=== PATIENT | male | born 1985 | race African-American/Black ===

== ENCOUNTER 2024-06-25 08:40 | Inpatient (IN) | payer OTHER ==
[2024-06-25] MEDS: ceFAZolin SODIUM 1 GM VIAL IVPB ONE
[2024-06-25] MEDS ORDERED: ACETAMINOPHEN INJECTION 100 ML ONE (10:10)
[2024-06-25] MEDS ORDERED: ONDANSETRON 4 MG/2 ML VIAL ONE ×2 (10:10→13:25)
[2024-06-25] MEDS: SODIUM CHLORIDE 0.9% 500 ML INFUS.BAG IV ONE ×2 (10:22→12:38)
[2024-06-25] MEDS: ONDANSETRON 4 MG/2 ML VIAL IVPUSH ONE (10:22)
[2024-06-25] MEDS: ACETAMINOPHEN 1000 MG/100 ML BAG IVPB ONE (10:22)
[2024-06-25 10:36] LABS: HEMATOCRIT 41.9 % (35.4-49); HEMOGLOBIN 13.6 GM/dL (11.7-16.9); MCHC 32.5 g/dl (32.0-35.9); MEAN CELL VOLUME 80.1 fl (80-96); MEAN PLT VOLUME 8.2 fl (7.5-11.1); PLATELET COUNT 177 10^3/uL (134-434); RBC 5.23 M/mm3 (4.00-5.60); RDW 15.7 % (11.9-15.9); WHITE BLOOD COUNT 12.9 K/mm3 (4.0-10.0)
[2024-06-25 10:39] LABS: EPI CELLS 17 /uL (0-25.1); HYALINE CASTS 9 /uL (0-3.1); PH,URINE 5.5 (5.0-8.0); URINE APPEARANCE CLOUDY; URINE BACTERIA 9 /uL (0-1359); URINE BILIRUBIN 1+ (NEGATIVE); URINE COLOR ORANGE; URINE GLUCOSE (UA) NEGATIVE (NEGATIVE); URINE KETONE TRACE (NEGATIVE); URINE LEUK ESTERASE TRACE (NEGATIVE); URINE NITRITE NEGATIVE (NEGATIVE); URINE PROTEIN 2+ (NEGATIVE); URINE RBC 18 /uL (0-23.9); URINE WBC 31 /uL (0-25.8)
[2024-06-25 10:47] LABS: INR 1.18 (0.83-1.09); PROTHROMBIN TIME (PATIENT) 13.5 SEC (9.7-13.0)
[2024-06-25 10:50] LABS: ACTIVATED PTT 28.2 SECONDS (25.2-36.5)
[2024-06-25 11:02] LABS: POTASSIUM 4.2 mmol/L (3.5-5.1)
[2024-06-25 11:05] LABS: ALBUMIN 3.6 g/dl (3.4-5.0); BLOOD UREA NITROGEN 15.5 mg/dL (7-18); CALCIUM 8.9 mg/dL (8.5-10.1)
[2024-06-25 11:07] LABS: CREATININE 1.6 mg/dL (0.55-1.3)
[2024-06-25 11:09] LABS: BILIRUBIN,TOTAL 0.8 mg/dL (0.2-1)
[2024-06-25 11:13] LABS: ANISOCYTOSIS 0; MACROCYTOSIS 0
[2024-06-25] MEDS ORDERED: BUPIVACAINE HCL/PF 0.25% (2.5MG/ML) 10 ML VIAL ONE (13:11)
[2024-06-25] MEDS ORDERED: BUPIVACAINE HCL/PF 0.5% (5MG/ML) 10 ML VIAL ONE (13:11)
[2024-06-25] MEDS ORDERED: ROCURONIUM BROMIDE 50 MG/5 ML SYRINGE ONE (13:24)
[2024-06-25] MEDS ORDERED: CEFTRIAXONE 1 GM/50 ML BAG ONE (13:24)
[2024-06-25] MEDS ORDERED: SUCCINYLCHOLINE CHLORIDE 200 MG/10 ML SYRINGE ONE (13:24)
[2024-06-25] MEDS ORDERED: LIDOCAINE HCL/PF 2% SDV 5ML VIAL ONE (13:25)
[2024-06-25] MEDS ORDERED: DEXAMETHASONE SOD PHOSPHATE 4 MG/1 ML VIAL ONE (13:25)
[2024-06-25] MEDS ORDERED: KETOROLAC TROMETHAMINE 30 MG/1 ML VIAL ONE (13:25)
[2024-06-25] MEDS ORDERED: PROPOFOL 40 ML ONE (13:26)
[2024-06-25] MEDS ORDERED: MIDAZOLAM HCL 2 MG/2 ML SINGLE DOSE VIAL ONE (13:28)
[2024-06-25] MEDS ORDERED: SEVOFLURANE 250 ML BTL ONE (13:31)
[2024-06-25] MEDS ORDERED: ACETAMINOPHEN 1000 MG/100 ML BAG IVPB PRN (13:32)
[2024-06-25] MEDS ORDERED: oxyCODONE HCL 5 MG TABLET PO PRN (13:37)
[2024-06-25] MEDS ORDERED: LACTATED RINGERS SOLUTION 1,000 ML IV SCH (13:45)
[2024-06-25] MEDS ORDERED: LACTATED RINGERS SOLUTION 1,000 ML/1,000 ML INFUS.BAG IV SCH ×2 (13:45→17:40)
[2024-06-25] MEDS ORDERED: PHENYLEPHRINE HCL 10 MG/1 ML SINGLE DOSE VIAL ONE (14:23)
[2024-06-25] MEDS ORDERED: SODIUM CHLORIDE 0.9% P/F 10 ML VIAL IJ ONE (14:28)
[2024-06-25] MEDS: LIDOCAINE HCL 1%, 10 MG/ML (20ML VIAL) NR ONE ×2 (14:41)
[2024-06-25] MEDS: BUPIVACAINE HCL/PF 0.5% (5MG/ML) 10 ML VIAL IJ ONE ×2 (14:41)
[2024-06-25] MEDS ORDERED: AMPICILLIN NA/SULBACTAM NA 3 GM in SODIUM CHLORIDE 100 ML IVPB SCH (17:00)
[2024-06-25] MEDS: LACTATED RINGERS SOLUTION 1,000 ML/1,000 ML INFUS.BAG IV SCH (19:35)
[2024-06-25] MEDS: PIPERACILLIN/TAZOB 4.5 GM 4.5 GM in DEXTROSE 5%-WATER 100 ML IVPB SCH (20:14)
[2024-06-25] MEDS: DOCUSATE SODIUM 100 MG CAPSULE (FP) PO SCH (22:34)
[2024-06-25] MEDS: ACETAMINOPHEN 1000 MG/100 ML BAG IVPB SCH (22:34)
[2024-06-26 04:40] VITALS: BMI 22.6
[2024-06-26] MEDS ORDERED: CEFTRIAXONE 1 GM in DEXTROSE 5%-WATER - 50 ML IVPB SCH (10:00)
[2024-06-26 10:08] LABS: POTASSIUM 4.2 mmol/L (3.5-5.1)
[2024-06-26 10:09] LABS: HEMOGLOBIN 11.9 GM/dL (11.7-16.9); MCH 25.4 pg (25.7-33.7); MCHC 31.4 g/dl (32.0-35.9); MEAN CELL VOLUME 80.9 fl (80-96); MEAN PLT VOLUME 9.1 fl (7.5-11.1); PLATELET COUNT 134 10^3/uL (134-434); RDW 16.2 % (11.9-15.9)
[2024-06-26 10:11] LABS: BLOOD UREA NITROGEN 17.8 mg/dL (7-18)
[2024-06-26 10:14] LABS: CREATININE 1.4 mg/dL (0.55-1.3)
[2024-06-26] MEDS: CEFTRIAXONE 1 GM in DEXTROSE 5%-WATER - 50 ML IVPB SCH (10:22)
[2024-06-26 11:54] LABS: MAGNESIUM 1.5 mg/dL (1.8-2.4)
[2024-06-26 11:58] LABS: ANISOCYTOSIS 0; MACROCYTOSIS 0
[2024-06-26] MEDS ORDERED: MAGNESIUM SULF 50% (8.12 MEQ/2 ML-1 GM VIAL) IVPB ONE (13:46)
[2024-06-26] MEDS: MAGNESIUM 2GM/50ML STERILE WATER IVPB IVPB ONE (15:31)
[2024-06-26] MEDS: oxyCODONE HCL 5 MG TABLET PO PRN (17:47)
[2024-06-26] MEDS: ONDANSETRON *ODT* 4 MG TABLET SL PRN (18:25)
[2024-06-27] MEDS: oxyCODONE HCL 5 MG TABLET PO PRN (07:08)
[2024-06-27 09:45] LABS: HEMATOCRIT 27.2 % (35.4-49); HEMOGLOBIN 8.7 GM/dL (11.7-16.9); MCH 25.6 pg (25.7-33.7); MCHC 31.8 g/dl (32.0-35.9); MEAN CELL VOLUME 80.5 fl (80-96); MEAN PLT VOLUME 9.3 fl (7.5-11.1); PLATELET COUNT 120 10^3/uL (134-434); RBC 3.38 M/mm3 (4.00-5.60); RDW 15.9 % (11.9-15.9); WHITE BLOOD COUNT 23.2 K/mm3 (4.0-10.0)
[2024-06-27 10:12] LABS: POTASSIUM 4.1 mmol/L (3.5-5.1)
[2024-06-27 10:20] LABS: BLOOD UREA NITROGEN 19.4 mg/dL (7-18); CREATININE 1.1 mg/dL (0.55-1.3); MAGNESIUM 2.6 mg/dL (1.8-2.4)
[2024-06-27 10:21] LABS: BILIRUBIN,TOTAL 0.5 mg/dL (0.2-1); TOT PROT 5.4 g/dl (6.4-8.2)
[2024-06-27 10:25] LABS: ALBUMIN 2.6 g/dl (3.4-5.0)
[2024-06-27 10:35] LABS: ANISOCYTOSIS 0; MACROCYTOSIS 0
[2024-06-27] MEDS ORDERED: KETOROLAC TROMETHAMINE 30 MG/1 ML VIAL IVPUSH PRN (15:20)
[2024-06-27] MEDS: ACETAMINOPHEN 500 MG TABLET (FP) PO SCH (16:51)
[2024-06-27] MEDS: HEPARIN NA (PORCINE) 5,000 UNITS/ML 1ML VIAL SQ SCH (22:16)
[2024-06-28 09:36] LABS: HEMATOCRIT 27.6 % (35.4-49); HEMOGLOBIN 8.7 GM/dL (11.7-16.9); MCH 25.5 pg (25.7-33.7); MCHC 31.7 g/dl (32.0-35.9); MEAN CELL VOLUME 80.6 fl (80-96); MEAN PLT VOLUME 8.1 fl (7.5-11.1); PLATELET COUNT 162 10^3/uL (134-434); RBC 3.43 M/mm3 (4.00-5.60); RDW 15.4 % (11.9-15.9); WHITE BLOOD COUNT 23.5 K/mm3 (4.0-10.0)
[2024-06-28 09:56] LABS: POTASSIUM 3.7 mmol/L (3.5-5.1)
[2024-06-28 09:59] LABS: CALCIUM 8.9 mg/dL (8.5-10.1)
[2024-06-28 10:00] LABS: BLOOD UREA NITROGEN 11.8 mg/dL (7-18); MAGNESIUM 2.2 mg/dL (1.8-2.4)
[2024-06-28 10:01] LABS: ALBUMIN 3.2 g/dl (3.4-5.0)
[2024-06-28 10:04] LABS: ANISOCYTOSIS 0; MACROCYTOSIS 0
[2024-06-28 10:05] LABS: BILIRUBIN,TOTAL 0.5 mg/dL (0.2-1); TOT PROT 6.4 g/dl (6.4-8.2)
[2024-06-28] MEDS ORDERED: LACTATED RINGERS SOLUTION 1000 ML INFUS.BAG IV ONE (13:20)
[2024-06-28] MEDS ORDERED: oxyCODONE HCL 5 MG TABLET PO PRN (14:07)
[2024-06-28] MEDS ORDERED: ACETAMINOPHEN 325 MG TABLET (FP) PO PRN (14:08)
[2024-06-28 14:09] LABS: PH,URINE 8.5 (5.0-8.0); URINE APPEARANCE CLEAR; URINE BILIRUBIN NEGATIVE (NEGATIVE); URINE COLOR YELLOW; URINE GLUCOSE (UA) NEGATIVE (NEGATIVE); URINE KETONE NEGATIVE (NEGATIVE); URINE LEUK ESTERASE NEGATIVE (NEGATIVE); URINE NITRITE NEGATIVE (NEGATIVE); URINE PROTEIN NEGATIVE (NEGATIVE); URINE UROBILINOGEN 0.2 mg/dL (0.2-1.0)
[2024-06-28] MEDS: DOCUSATE SODIUM 100 MG CAPSULE (FP) PO SCH (15:14)
[2024-06-28] MEDS: PIPERACILLIN/TAZOB 3.375 GM 3.375 GM in DEXTROSE 5%-WATER - 50 ML IVPB SCH (17:47)
[2024-06-28] MEDS: SODIUM CHLORIDE 1,000 ML IV SCH (17:47)
[2024-06-28] MEDS: HEPARIN NA (PORCINE) 5,000 UNITS/ML 1ML VIAL SQ SCH (21:25)
[2024-06-28 22:58] LABS: BASO % 0.5 % (0-2.0); EOS % 0.6 % (0-4.5); HEMATOCRIT 27.5 % (35.4-49); HEMOGLOBIN 8.9 GM/dL (11.7-16.9); LYMPH % 13.8 % (8-40); MCH 25.5 pg (25.7-33.7); MCHC 32.2 g/dl (32.0-35.9); MEAN CELL VOLUME 79.1 fl (80-96); MEAN PLT VOLUME 7.5 fl (7.5-11.1); MONO % 6.3 % (3.8-10.2); NEUT % 78.8 % (42.8-82.8); PLATELET COUNT 168 10^3/uL (134-434); RBC 3.48 M/mm3 (4.00-5.60); RDW 15.4 % (11.9-15.9); WHITE BLOOD COUNT 19.3 K/mm3 (4.0-10.0)
[2024-06-28 23:35] LABS: ANISOCYTOSIS 2+; MACROCYTOSIS 0; TARGET CELLS 1+
[2024-06-28 23:36] VITALS: RESP 18
[2024-06-29 08:27] LABS: INR 1.04 (0.83-1.09); PROTHROMBIN TIME (PATIENT) 11.9 SEC (9.7-13.0)
[2024-06-29 08:27] LABS: HEMATOCRIT 27.9 % (35.4-49); HEMOGLOBIN 9.1 GM/dL (11.7-16.9); MCH 25.8 pg (25.7-33.7); MCHC 32.6 g/dl (32.0-35.9); MEAN CELL VOLUME 79.1 fl (80-96); MEAN PLT VOLUME 7.5 fl (7.5-11.1); PLATELET COUNT 177 10^3/uL (134-434); RBC 3.52 M/mm3 (4.00-5.60); RDW 15.1 % (11.9-15.9); WHITE BLOOD COUNT 15.8 K/mm3 (4.0-10.0)
[2024-06-29 08:37] LABS: POTASSIUM 3.9 mmol/L (3.5-5.1)
[2024-06-29 08:39] LABS: CALCIUM 9.1 mg/dL (8.5-10.1)
[2024-06-29 08:40] LABS: BLOOD UREA NITROGEN 8.7 mg/dL (7-18)
[2024-06-29 08:43] LABS: CREATININE 0.9 mg/dL (0.55-1.3)
[2024-06-29 08:44] LABS: BILIRUBIN,TOTAL 0.5 mg/dL (0.2-1); TOT PROT 6.4 g/dl (6.4-8.2)
[2024-06-29] MEDS: ACETAMINOPHEN 325 MG TABLET (FP) PO ONE (09:36)
[2024-06-29 10:42] LABS: ANISOCYTOSIS 0; HELMET CELLS 0; HOWELL-JOLLY BODIES 0; MACROCYTOSIS 0; OVALOCYTE 0; ROULEAU 0; SICKELED CELLS 0; TARGET CELLS 0; TEAR DROP CELLS 0; TOXIC GRANULATION 0
[2024-06-29] MEDS ORDERED: PIPERACILLIN/TAZOB 3.375 GM 3.375 GM in DEXTROSE 5%-WATER - 50 ML IVPB SCH (12:30)
[2024-06-29 15:30] LABS: INR 1.07 (0.83-1.09); PROTHROMBIN TIME (PATIENT) 12.3 SEC (9.7-13.0)
[2024-06-29] MEDS: PIPERACILLIN/TAZOB 3.375 GM 3.375 GM in DEXTROSE 5%-WATER - 50 ML IVPB SCH (15:37)
[2024-06-30 09:23] LABS: HEMATOCRIT 37.6 % (35.4-49); HEMOGLOBIN 12.4 GM/dL (11.7-16.9); MCH 26.2 pg (25.7-33.7); MEAN CELL VOLUME 79.2 fl (80-96); MEAN PLT VOLUME 7.4 fl (7.5-11.1); PLATELET COUNT 211 10^3/uL (134-434); RBC 4.75 M/mm3 (4.00-5.60); RDW 14.8 % (11.9-15.9); WHITE BLOOD COUNT 11.8 K/mm3 (4.0-10.0)
[2024-06-30 09:32] LABS: ALBUMIN 3.3 g/dl (3.4-5.0); CALCIUM 9.2 mg/dL (8.5-10.1)
[2024-06-30 09:33] LABS: MAGNESIUM 2.2 mg/dL (1.8-2.4)
[2024-06-30 09:37] LABS: BILIRUBIN,TOTAL 1.2 mg/dL (0.2-1); TOT PROT 6.9 g/dl (6.4-8.2)
[2024-06-30] MEDS ORDERED: DOCUSATE SODIUM 100 MG CAPSULE (FP) PO PRN (10:01)
[2024-06-30 10:56] LABS: ANISOCYTOSIS 0; HELMET CELLS 0; HOWELL-JOLLY BODIES 0; MACROCYTOSIS 0; OVALOCYTE 0; ROULEAU 0; SICKELED CELLS 0; TARGET CELLS 0; TEAR DROP CELLS 0; TOXIC GRANULATION 0
[2024-06-30] MEDS: oxyCODONE HCL 5 MG TABLET PO PRN (21:37)
[2024-06-30] MEDS: SENNOSIDES 8.8 MG/5 ML SYRUP PO SCH (21:38)
[2024-07-01 06:35] VITALS: BP 127/52; PULSE 68; TEMP 98.8
[2024-07-01 09:42] LABS: HEMATOCRIT 39.4 % (35.4-49); HEMOGLOBIN 12.8 GM/dL (11.7-16.9); MCH 26.2 pg (25.7-33.7); MCHC 32.6 g/dl (32.0-35.9); MEAN CELL VOLUME 80.2 fl (80-96); MEAN PLT VOLUME 7.6 fl (7.5-11.1); PLATELET COUNT 252 10^3/uL (134-434); RBC 4.91 M/mm3 (4.00-5.60); RDW 15.3 % (11.9-15.9); WHITE BLOOD COUNT 12.7 K/mm3 (4.0-10.0)
[2024-07-01 09:58] LABS: POTASSIUM 4.4 mmol/L (3.5-5.1)
[2024-07-01 10:00] LABS: ALBUMIN 3.6 g/dl (3.4-5.0); BLOOD UREA NITROGEN 13.9 mg/dL (7-18); MAGNESIUM 2.4 mg/dL (1.8-2.4)
[2024-07-01 10:03] LABS: CREATININE 1.1 mg/dL (0.55-1.3)
[2024-07-01 10:05] LABS: TOT PROT 7.6 g/dl (6.4-8.2)
[2024-07-01 10:23] LABS: ANISOCYTOSIS 3+; MACROCYTOSIS 0
== END 2024-07-01 10:47 | disposition home or self-care (01) | DRG 225 ==
LOC: JER 08:40 → JERBED 13:32 → J8W 13:32 → UNDOADMIN 13:32 → J8W 19:55 → JERBED 19:55 → JASUSAT 06-26 09:54 → J8W 06-26 10:19
PROVIDERS: ADMIT Internal Medicine; ATTEND Nurse Practitioner Family
PROC: 0DTJ4ZZ Resection of Appendix, Percutaneous Endoscopic Approach (ICD-10-PCS; principal; 2024-06-25 13:00)
PROC: 30233N1 Transfusion of Nonautologous Red Blood Cells into Peripheral Vein, Percutaneous Approach (ICD-10-PCS; 2024-06-29)
DX: K35.80 Unspecified acute appendicitis (principal); N17.9 Acute kidney failure, unspecified; J98.11 Atelectasis; L76.32 Postprocedural hematoma of skin and subcutaneous tissue following other procedure; Y83.9 Surgical procedure, unspecified as the cause of abnormal reaction of the patient, or of later complication, without mention of misadventure at the time of the procedure; R10.9 Unspecified abdominal pain; E86.0 Dehydration; D64.9 Anemia, unspecified
CPT/HCPCS: 0241U-QW; 36415; 36430; 71045-TC-FY; 71275-TC; 74176-TC; 74177-TC; 80048; 80053; 81003; 83540; 83550; 83735; 85025; 85610; 85730; 86850; 86900; 86901; 86922; 87040; 87086; 93005; 93010; 93306-TC; 94010; 94760; 99285-25; J0131; J1644; P9058; Q0162; Q9967